=== PATIENT | female | born 1980 ===

== ENCOUNTER 2018-03-19 19:32 | Emergency (ER) | payer MEDICAID ==
[2018-03-19 19:42] VITALS: PULSE 84; TEMP 97.6
[2018-03-19 19:43] VITALS: BMI 31.3
[2018-03-19] MEDS ORDERED: DiphenhydrAMINE 50 mg/ml Inj ONE (19:45)
[2018-03-19] MEDS ORDERED: DiphenhydrAMINE 50 mg/ml Inj IVP ONE ×2 (19:47)
--- NOTE | 2018-03-19 19:54 | ED PDOC ---
Arrival/HPI - General Chief Complaint: Allergic Reaction Time Seen by Provider: 03/19/18 19:46 - History of Present Illness Narrative History of Present Illness (Text): 03/19/18 19:52 pt is c/o of allergic reaction to medication started yesterday for aniety, present with dystonic reaction, unable to speak and walk Past Medical History - Provider Review Nursing Documentation Reviewed: Yes - Infectious Disease Hx of Infectious Diseases: None - Cardiac Hx Cardiac Disorders: No - Pulmonary Hx Respiratory Disorders: No - Neurological Hx Neurological Disorder: No - HEENT Hx HEENT Disorder: No - Renal Hx Renal Disorder: No - Endocrine/Metabolic Hx Endocrine Disorders: No - Hematological/Oncological Hx Blood Disorders: No - Integumentary Hx Dermatological Disorder: No - Musculoskeletal/Rheumatological Hx Musculoskeletal Disorders: No - Gastrointestinal Hx Gastrointestinal Disorders: No - Genitourinary/Gynecological Hx Genitourinary Disorders: No - Psychiatric Hx Psychophysiologic Disorder: Yes Hx Anxiety: Yes Hx Substance Use: No Family/Social History - Physician Review Nursing Documentation Reviewed: Yes Family/Social History: No Known Family HX Smoking Status: Never Smoked Hx Alcohol Use: No Hx Substance Use: No Allergies/Home Meds Allergies/Adverse Reactions: Allergies No Known Allergies Allergy (Verified 03/19/18 19:42) Home Medications: Home Meds Medication Instructions Recorded Confirmed Benztropine [Cogentin] 1 mg PO BID 03/19/18 03/19/18 fluPHENAZine [Prolixin] 5 mg PO BID 03/19/18 03/19/18 Review of Systems - Review of Systems Constitutional: Normal Eyes: Normal ENT: Normal Respiratory: Normal Cardiovascular: Normal Gastrointestinal: Normal Genitourinary Female: Normal Musculoskeletal: Normal Skin: Normal Neurological: Gait Changes, Speech Changes Endocrine: Normal Hemo/Lymphatic: Normal Psychiatric: Normal Physical Exam Vital Signs Reviewed: Yes Vital Signs Temp Pulse Resp BP Pulse Ox 03/19/18 20:49 18 142/80 100 03/19/18 19:41 97.6 F 84 21 177/116 H 97 Temperature: Afebrile Blood Pressure: Normal Pulse: Regular Respiratory Rate: Normal Appearance: Positive for: Well-Appearing, Non-Toxic, Comfortable Pain Distress: None Mental Status: Positive for: Alert and Oriented X 3 - Systems Exam Head: Present: Atraumatic, Normocephalic Pupils: Present: PERRL Extroacular Muscles: Present: EOMI Conjunctiva: Present: Normal Mouth: Present: Moist Mucous Membranes Neck: Present: Normal Range of Motion Respiratory/Chest: Present: Clear to Auscultation, Good Air Exchange. No: Respiratory Distress, Accessory Muscle Use Cardiovascular: Present: Regular Rate and Rhythm, Normal S1, S2. No: Murmurs Abdomen: No: Tenderness, Distention, Peritoneal Signs Back: Present: Normal Inspection Upper Extremity: Present: Normal Inspection. No: Cyanosis, Edema Lower Extremity: Present: Normal Inspection. No: Edema Neurological: Present: GCS=15, CN II-XII Intact, Other. No: Speech Normal ( dystonic reaction to face and lower ext) Skin: Present: Warm, Dry, Normal Color. No: Rashes Psychiatric: Present: Alert, Oriented x 3, Normal Insight, Normal Concentration Medical Decision Making - Lab Interpretations Lab Results: Lab Results 03/19/18 19:38: POC Glucose (mg/dL) 95 - Medication Orders Current Medication Orders: Discontinued Medications Diphenhydramine HCl (Benadryl) 50 mg IVP ONCE ONE Stop: 03/19/18 19:48 Last Admin: 03/19/18 20:48 Dose: Diphenhydramine HCl (Benadryl) 25 mg IVP ONCE ONE Stop: 03/19/18 19:48 Last Admin: 03/19/18 19:57 Dose: 25 mg IVP Administration Document 03/19/18 19:57 SS (Rec: 03/19/18 19:57 SS [id number]) Charges for Administration # of IVP Administrations 1 Disposition/Present on Arrival - Present on Arrival Any Indicators Present on Arrival: No History of DVT/PE: No History of Uncontrolled Diabetes: No Urinary Catheter: No History of Decub. Ulcer: No History Surgical Site Infection Following: None - Disposition Have Diagnosis and Disposition been Completed?: Yes Diagnosis: Dystonic drug reaction Disposition: HOME/ ROUTINE Disposition Time: 20:50 Condition: GOOD Discharge Instructions (ExitCare): Tardive Dyskinesia Additional Instructions: stop all medicine Forms: [email or web address] (Bengali)
[2018-03-19 20:51] VITALS: BP 142/80; RESP 18; O2SAT 100
== END 2018-03-19 20:49 | disposition home or self-care (01) ==
LOC: MERGE 19:32 → ED 19:32
DX: G24.09 Other drug induced dystonia (principal)
CPT/HCPCS: 82948; 96374; 99283; J1200